=== PATIENT | male | born 1995 | race Caucasian/White ===

== ENCOUNTER 2017-05-25 17:40 | Emergency (ER) | payer OTHER ==
[2017-05-25 17:49] VITALS: BP 123/58; PULSE 69; RESP 18; TEMP 98.8
--- NOTE | 2017-05-25 18:01 | ED ---
General Adult HPI - General Chief complaint: Extremity Problem,Nontraumatic Stated complaint: RT KNEE PAIN, WELTS ON ABDOMEN Time Seen by Provider: 05/25/17 17:52 Source: patient, RN notes reviewed Mode of arrival: ambulatory Limitations: no limitations - History of Present Illness Initial comments: 22 yo male presents to the ER with cc of right knee pain. Patient states that he woke up with this in the right knee pain this morning. Patient states he has pain with range of motion of the right knee. Patient states it hurts on the medial aspect. Worse toe walking causes a shooting pain. Patient also noticed an insect bites on the redness around the area when he woke up today as well. Patient states he hasn't had a cough cold runny nose. Patient denies any fever or chills. Patient was concerned due to his symptoms so he came and evaluated. Patient denies any recent fever, chills, shortness of breath, chest pain, back pain, abdominal pain, nausea vomiting, numbness or tingling, dysuria or hematuria, constipation or diarrhea, headaches or visual changes, or any other current symptoms. - Related Data Previous Rx's Medication Instructions Recorded Cephalexin [Keflex] 500 mg PO Q6HR #40 cap 05/25/17 Allergies Allergy/AdvReac Type Severity Reaction Status Date / Time No Known Allergies Allergy Verified 05/25/17 17:49 Review of Systems ROS Statement: Those systems with pertinent positive or pertinent negative responses have been documented in the HPI. ROS Other: All systems not noted in ROS Statement are negative. Past Medical History Past Medical History: No Reported History History of Any Multi-Drug Resistant Organisms: None Reported Past Surgical History: Tonsillectomy Past Psychological History: No Psychological Hx Reported Smoking Status: Never smoker Past Alcohol Use History: Occasional Past Drug Use History: Marijuana General Exam - General Exam Comments Initial Comments: General: The patient is awake and alert, in no distress, and does not appear acutely ill. Neck: The neck is supple, there is no tenderness. Cardiovascular: There is a regular rate and rhythm. No murmur, rub or gallop is appreciated. Respiratory: Lungs are clear to auscultation, respirations are non-labored, breath sounds are equal. No wheezes, stridor, rales, or rhonchi. Musculoskeletal: Sensation intact with 2+ pulses throughout the right upper extremity. Motion of right hip right knee and right ankle. Patient does have some tenderness on the medial aspect of the right knee. Patient appears to have an insect bite with associated cellulitis from the area to the right hip. 5 out of 5 muscle strength testing throughout. No fluctuance noted. Neurological: CN II-XII intact, There are no obvious motor or sensory deficits. Coordination appears grossly intact. Speech is normal. Skin: Skin is warm and dry and no rashes or lesions are noted. Psychiatric: Normal mood and affect. Limitations: no limitations Course Vital Signs 05/25/17 17:46 Temperature 98.8 F Pulse Rate 69 Respiratory 18 Rate Blood Pressure 123/58 O2 Sat by Pulse 99 Oximetry Medical Decision Making - Medical Decision Making 22-year-old male presents for a right knee sprain along with a right groin insect bite This and was started on Keflex. We also discussed follow-up with orthopedic for any pain. We discussed return parameters all questions. He stated he understood and is in agreement with plan. This and will be discharged home. Disposition Clinical Impression: Right knee sprain, Cellulitis of right groin, Insect bite Disposition: HOME SELF-CARE Condition: Stable Instructions: Knee Sprain (ED), Cellulitis (ED) Additional Instructions: Please use medication as discussed. Please follow up with family doctor if symptoms have not improved over the next two days. Please return to the emergency room if your symptoms increase or worsen or for any other concerns. Prescriptions: Cephalexin [Keflex] 500 mg PO Q6HR #40 cap Referrals: Aung Montoya DO [Primary Care Provider] - 1-2 days Time of Disposition: 18:36
--- NOTE | 2017-05-25 18:34 | XR ---
EXAMINATION TYPE: XR knee complete RT DATE OF EXAM: 05/25/2017 CLINICAL HISTORY: pain TECHNIQUE: Three views of the right knee are obtained. COMPARISON: None. FINDINGS: There is no acute fracture/dislocation. The tri-compartment joint spaces appear within no rmal limits. The overlying soft tissue appears unremarkable. IMPRESSION: There is no acute fracture or dislocation.ICD 10 NO FRACTURE, INITIAL EVALUATION
== END 2017-05-25 18:42 | disposition home or self-care (01) ==
LOC: EC 17:40
DX: S83.91XA Sprain of unspecified site of right knee, initial encounter (principal); S30.861A Insect bite (nonvenomous) of abdominal wall, initial encounter; L03.314 Cellulitis of groin; X50.9XXA Other and unspecified overexertion or strenuous movements or postures, initial encounter; W57.XXXA Bitten or stung by nonvenomous insect and other nonvenomous arthropods, initial encounter; Y93.01 Activity, walking, marching and hiking
CPT/HCPCS: 99283

== ENCOUNTER 2017-07-28 19:29 | Emergency (ER) | payer OTHER ==
[2017-07-28 19:34] VITALS: BP 124/63; PULSE 72; RESP 18; TEMP 97.8
--- NOTE | 2017-07-28 19:41 | ED ---
General Adult HPI - General Chief complaint: Dental/Oral Stated complaint: Jaw Pain Time Seen by Provider: 07/28/17 19:34 Source: patient, RN notes reviewed Mode of arrival: ambulatory Limitations: no limitations - History of Present Illness Initial comments: Patient 22-year-old male who presents emergency room today with chief complaint of increased dental pain. He does admit that 3 days ago he had a filling that came out of tooth #19. Patient states that he has had some discomfort over the last day when he is eating. States is worried about possible infection. Says that he thinks he needs an antibiotic. He denies any drainage or discharge. Denies difficulty days. Patient points associated symptoms. Patient denies any recent fever, chills, shortness of breath, chest pain, back pain, abdominal pain , nausea or vomiting, numbness or tingling, dysuria or hematuria, constipation or diarrhea, headaches or visual changes, or any other complaints. - Related Data Previous Rx's Medication Instructions Recorded Penicillin V Potassium [Pen Vee K] 500 mg PO QID 10 Days 07/28/17 Allergies Allergy/AdvReac Type Severity Reaction Status Date / Time No Known Allergies Allergy Verified 07/28/17 19:33 Review of Systems ROS Statement: Those systems with pertinent positive or pertinent negative responses have been documented in the HPI. ROS Other: All systems not noted in ROS Statement are negative. Past Medical History Past Medical History: No Reported History History of Any Multi-Drug Resistant Organisms: None Reported Past Surgical History: Tonsillectomy Past Psychological History: No Psychological Hx Reported Smoking Status: Never smoker Past Alcohol Use History: Occasional Past Drug Use History: Marijuana General Exam - General Exam Comments Initial Comments: General: The patient is awake and alert, in no distress, and does not appear acutely ill. Eye: Pupils are equal, round and reactive to light, extra-ocular movements are intact. No nystagmus. There is normal conjunctiva bilaterally. No signs of icterus. Ears, nose, mouth and throat: There are moist mucous membranes and no oral lesions. Mild tenderness in the, tooth #19. No sign of abscess. Uvula midline. Patient swallows without difficulty. Neck: The neck is supple, there is no tenderness or JVD. Cardiovascular: There is a regular rate and rhythm. No murmur, rub or gallop is appreciated. Respiratory: Lungs are clear to auscultation, respirations are non-labored, breath sounds are equal. No wheezes, stridor, rales, or rhonchi. Musculoskeletal: Normal ROM, no tenderness. Strength 5/5. Sensation intact. Pulses equal bilaterally 2+. Neurological: A&O x 3. CN II-XII intact, There are no obvious motor or sensory deficits. Coordination appears grossly intact. Speech is normal. Skin: Skin is warm and dry and no rashes or lesions are noted. Psychiatric: Cooperative, appropriate mood & affect, normal judgment. Limitations: no limitations Course Vital Signs 07/28/17 19:30 Temperature 97.8 F Pulse Rate 72 Respiratory 18 Rate Blood Pressure 124/63 O2 Sat by Pulse 98 Oximetry Disposition Clinical Impression: Pain, dental Disposition: HOME SELF-CARE Condition: Good Instructions: Dental Abscess (ED) Additional Instructions: Please use medication as discussed. Please follow-up with dentist as discussed. Please return to emergency room if the symptoms increase or worsen or for any other concerns. Prescriptions: Penicillin V Potassium [Pen Vee K] 500 mg PO QID 10 Days Referrals: Aung Montoya DO [Primary Care Provider] - 1-2 days Time of Disposition: 19:40
== END 2017-07-28 19:46 | disposition home or self-care (01) ==
LOC: EC 19:29
DX: K08.89 Other specified disorders of teeth and supporting structures (principal); R68.84 Jaw pain
CPT/HCPCS: 99283

== ENCOUNTER 2017-09-27 15:52 | Emergency (ER) | payer BC, OTHER ==
[2017-09-27 16:01] VITALS: BP 124/59; PULSE 84; RESP 18; TEMP 97.6
--- NOTE | 2017-09-27 16:10 | ED ---
General Adult HPI - General Chief complaint: Upper Respiratory Infection Stated complaint: cough Time Seen by Provider: 09/27/17 16:02 Source: patient, RN notes reviewed Mode of arrival: ambulatory Limitations: no limitations - History of Present Illness Initial comments: Patient 22-year-old male who presents emergency room today with a chief complaint of cough congestion over the last 4 days. Patient does admit to increased sinus pressure. Admits to sore throat. Admits to mild cough. Denies any other complaints or symptoms. Patient denies any recent fever, chills , shortness of breath, chest pain, back pain, abdominal pain, nausea or vomiting , numbness or tingling, headaches or visual changes, or any other complaints. - Related Data Previous Rx's Medication Instructions Recorded Penicillin V Potassium [Pen Vee K] 500 mg PO QID 10 Days day 07/28/17 Amoxicillin/Potassium Clav 1 each PO Q12HR #20 tab 09/27/17 [Augmentin 875-125 Tablet] Fluticasone Propionate [Flonase 1 - 2 spray EA NOSTRIL DAILY 5 09/27/17 Allergy Relief] Days ml Allergies Allergy/AdvReac Type Severity Reaction Status Date / Time No Known Allergies Allergy Verified 09/27/17 16:02 Review of Systems ROS Statement: Those systems with pertinent positive or pertinent negative responses have been documented in the HPI. ROS Other: All systems not noted in ROS Statement are negative. Past Medical History Past Medical History: No Reported History History of Any Multi-Drug Resistant Organisms: None Reported Past Surgical History: Tonsillectomy Past Psychological History: No Psychological Hx Reported Smoking Status: Never smoker Past Alcohol Use History: Occasional Past Drug Use History: Marijuana General Exam - General Exam Comments Initial Comments: General: The patient is awake and alert, in no distress, and does not appear acutely ill. Eye: Pupils are equal, round and reactive to light, extra-ocular movements are intact. No nystagmus. There is normal conjunctiva bilaterally. No signs of icterus. Ears, nose, mouth and throat: There are moist mucous membranes and no oral lesions. patient does have tenderness over the maxillary sinuses greater on the right the left. Neck: The neck is supple, there is no tenderness or JVD. Cardiovascular: There is a regular rate and rhythm. No murmur, rub or gallop is appreciated. Respiratory: Lungs are clear to auscultation, respirations are non-labored, breath sounds are equal. No wheezes, stridor, rales, or rhonchi. Musculoskeletal: Normal ROM, no tenderness. Strength 5/5. Sensation intact. Pulses equal bilaterally 2+. Neurological: A&O x 3. CN II-XII intact, There are no obvious motor or sensory deficits. Coordination appears grossly intact. Speech is normal. Skin: Skin is warm and dry and no rashes or lesions are noted. Psychiatric: Cooperative, appropriate mood & affect, normal judgment. Limitations: no limitations Course Vital Signs 09/27/17 15:58 Temperature 97.6 F Pulse Rate 84 Respiratory 18 Rate Blood Pressure 124/59 O2 Sat by Pulse 98 Oximetry Medical Decision Making - Medical Decision Making she will be started on Flonase advise use antibiotic if there is no improvement over the next 2 days. Advised to return if any symptoms increase or worsen. Disposition Clinical Impression: Acute sinusitis Disposition: HOME SELF-CARE Condition: Good Instructions: Sinusitis (ED) Additional Instructions: Please use medication as discussed. Please follow-up with family doctor in the next 2 days of symptoms have not improved. Please return to emergency room if the symptoms increase or worsen or for any other concerns. Prescriptions: Amoxicillin/Potassium Clav [Augmentin 875-125 Tablet] 1 each PO Q12HR #20 tab Fluticasone Propionate [Flonase Allergy Relief] 1 - 2 spray EA NOSTRIL DAILY 5 Days ml Referrals: Aung Montoya DO [Primary Care Provider] - 1-2 days Time of Disposition: 16:07
== END 2017-09-27 16:19 | disposition home or self-care (01) ==
LOC: EC 15:52
DX: J01.90 Acute sinusitis, unspecified (principal); J02.9 Acute pharyngitis, unspecified
CPT/HCPCS: 99283

== ENCOUNTER 2019-03-25 11:17 | Emergency (ER) | payer BC ==
[2019-03-25 11:28] VITALS: TEMP 98.7
[2019-03-25] MEDS ORDERED: IPRATROPIUM-ALBUTEROL 3 ML NEB INHALATION STA (11:37)
--- NOTE | 2019-03-25 11:51 | XR ---
EXAMINATION TYPE: XR chest 2V DATE OF EXAM: 03/25/2019 COMPARISON: Prior chest x-ray 05/06/2013 HISTORY: Cough and pain TECHNIQUE: Frontal and lateral views of the chest are obtained. FINDINGS: There are overlying cardiac leads. There is no focal air space opacity, pleural effusion, o r pneumothorax seen. The cardiac silhouette size is within normal limits. The osseous structures a re intact. IMPRESSION: No acute cardiopulmonary process.
--- NOTE | 2019-03-25 12:18 | ED ---
URI HPI - General Chief Complaint: Upper Respiratory Infection Stated Complaint: roger, chest tightness Time Seen by Provider: 03/25/19 11:31 Source: patient, RN notes reviewed Mode of arrival: ambulatory Limitations: no limitations - History of Present Illness Initial Comments: This a 24-year-old male presents emergency Department chief complaint of cough congestion shortness of breath. Patient states symptoms started last few days woke up some increased shortness of breath and pain with deep inspiration. Patient states that he does smoke marijuana regular basis. Patient states she's had sinus congestion and a slightly productive cough. Patient denies any known fevers or chills denies any sick contacts. Denies ear pain, sore throat. Denies nausea and diarrhea constipation. - Related Data Previous Rx's Medication Instructions Recorded Penicillin V Potassium [Pen Vee K] 500 mg PO QID 10 Days day 07/28/17 Amoxicillin/Potassium Clav 1 each PO Q12HR #20 tab 09/27/17 [Augmentin 875-125 Tablet] Fluticasone Propionate [Flonase 1 - 2 spray EA NOSTRIL DAILY 5 09/27/17 Allergy Relief] Days ml Albuterol Sulfate [Proair Hfa] 1 - 2 puff INHALATION Q4HR PRN #1 03/25/19 inhaler Azithromycin [Zithromax Z-pack] 0 mg PO DIRECTED #1 pack 03/25/19 predniSONE 50 mg PO DAILY #5 tab 03/25/19 Allergies Allergy/AdvReac Type Severity Reaction Status Date / Time No Known Allergies Allergy Verified 09/27/17 16:02 Review of Systems ROS Statement: Those systems with pertinent positive or pertinent negative responses have been documented in the HPI. ROS Other: All systems not noted in ROS Statement are negative. Past Medical History Past Medical History: No Reported History History of Any Multi-Drug Resistant Organisms: None Reported Past Surgical History: Tonsillectomy Past Psychological History: No Psychological Hx Reported Smoking Status: Never smoker Past Alcohol Use History: Occasional Past Drug Use History: Marijuana General Exam Limitations: no limitations General appearance: alert, in no apparent distress Head exam: Present: atraumatic, normocephalic, normal inspection Eye exam: Present: normal appearance, PERRL, EOMI. Absent: scleral icterus, conjunctival injection, periorbital swelling ENT exam: Present: normal exam, normal oropharynx, mucous membranes moist, TM's normal bilaterally Neck exam: Present: normal inspection. Absent: tenderness, meningismus, lymphadenopathy Respiratory exam: Present: wheezes. Absent: normal lung sounds bilaterally, respiratory distress, rales, rhonchi, stridor Cardiovascular Exam: Present: regular rate, normal rhythm, normal heart sounds. Absent: systolic murmur, diastolic murmur, rubs, gallop, clicks Course Vital Signs 03/25/19 03/25/19 03/25/19 11:26 11:54 12:03 Temperature 98.7 F Pulse Rate 86 81 85 Respiratory 18 Rate Blood Pressure 108/72 O2 Sat by Pulse 97 Oximetry Medical Decision Making - Medical Decision Making 24-year-old male presented for cough congestion shortness of breath. EKG, chest x-ray were obtained patient was also given a DuoNeb treatment. Patient is improved after this. Patient has acute bronchitis with bronchospasms. Patient we discharged with azithromycin and prednisone along with the pro-air inhaler. 03/25/19 12:18 EKG performed at 11:35 normal sinus rhythm rate of 82 AK 158 QRS 88 QT/QTC 338/394 Disposition Clinical Impression: Acute bronchitis with bronchospasm, Costochondritis, acute Disposition: HOME SELF-CARE Condition: Stable Instructions (If sedation given, give patient instructions): Acute Bronchitis (ED) Additional Instructions: Please return to the Emergency Department if symptoms worsen or any other concerns. Prescriptions: predniSONE 50 mg PO DAILY #5 tab Albuterol Sulfate [Proair Hfa] 1 - 2 puff INHALATION Q4HR PRN #1 inhaler PRN Reason: difficulty in breathing Azithromycin [Zithromax Z-pack] 0 mg PO DIRECTED #1 pack Is patient prescribed a controlled substance at d/c from ED?: No Referrals: Aung Montoya DO [Primary Care Provider] - 1-2 days Time of Disposition: 12:18
[2019-03-25 13:07] VITALS: BP 132/67; PULSE 96; RESP 16
== END 2019-03-25 13:00 | disposition home or self-care (01) ==
LOC: EC 11:17
DX: M94.0 Chondrocostal junction syndrome [Tietze] (principal); J20.9 Acute bronchitis, unspecified
CPT/HCPCS: 71046; 93005; 94640; 99285

== ENCOUNTER 2020-02-11 14:10 | Emergency (ER) | payer BC, OTHER ==
--- NOTE | 2020-02-11 15:17 | ED ---
General Adult HPI - General Chief complaint: Chest Pain Stated complaint: migraine/chest pain Time Seen by Provider: 02/11/20 14:26 Source: patient Mode of arrival: ambulatory Limitations: no limitations - History of Present Illness Initial comments: 25-year-old male patient presents to the emergency department today for evaluation of cough and chest discomfort. Patient states that when he woke this morning he had a migraine headache, went to work. States that the headache did seem to resolve however he started to have a cough and chest tightness. Denies any increased pain with inspiration. Denies fever or chills. Denies any nasal congestion or drainage. He is not having any sputum production with this. States that he does smoke marijuana once daily but denies any use of cigarettes. Denies history of asthma. Denies family history of cardiac disease. Patient denies any recent rash, abdominal pain, nausea, vomiting, diarrhea, constipa tion, back pain, numbness, tingling, dizziness, weakness, hematuria, dysuria, urinary urgency, urinary frequency, headache, visual changes, or any other complaints. - Related Data Home Medications Medication Instructions Recorded Confirmed No Known Home Medications 02/11/20 02/11/20 Allergies Allergy/AdvReac Type Severity Reaction Status Date / Time No Known Allergies Allergy Verified 02/11/20 15:45 Review of Systems ROS Statement: Those systems with pertinent positive or pertinent negative responses have been documented in the HPI. ROS Other: All systems not noted in ROS Statement are negative. Past Medical History Past Medical History: No Reported History History of Any Multi-Drug Resistant Organisms: None Reported Past Surgical History: Tonsillectomy Past Psychological History: No Psychological Hx Reported Smoking Status: Current every day smoker Past Alcohol Use History: Occasional Past Drug Use History: Marijuana General Exam Limitations: no limitations General appearance: alert, in no apparent distress, other (This is a well- developed, well-nourished adult male patient in no acute distress. Vital signs upon presentation are temperature 98.2F, pulse 62, respirations 18, blood pressure 126/72, pulse ox 97% on room air.) ENT exam: Present: normal exam, normal oropharynx, mucous membranes moist Respiratory exam: Present: normal lung sounds bilaterally. Absent: respiratory distress, wheezes, rales, rhonchi, stridor Cardiovascular Exam: Present: regular rate, normal rhythm, normal heart sounds. Absent: systolic murmur, diastolic murmur, rubs, gallop, clicks GI/Abdominal exam: Present: soft, normal bowel sounds. Absent: distended, tenderness, guarding, rebound, rigid Neurological exam: Present: alert, oriented X3, CN II-XII intact Psychiatric exam: Present: normal affect, normal mood Skin exam: Present: warm, dry, intact, normal color. 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 Ventricular rate is 59, VT interval 176, QRS duration 88, QT 402, QTc 397. Medical Decision Making - Medical Decision Making 25-year-old male patient presented to the emergency department today for evaluation of cough and chest discomfort. Physical examination reveals clear equal lung sounds. He is breathing without difficulty. No accessory muscle use, no tachypnea. Vital signs showed no major abnormalities. He is afebrile. EKG shows sinus bradycardia. Chest x-ray is negative. Patient will be discharged to follow-up with his primary care physician for recheck in 1-2 days. Return parameters were discussed in detail. He verbalizes understanding and agrees with this plan. - Radiology Data Radiology results: report reviewed, image reviewed Two-view x-ray of the chest is obtained. Report was reviewed in its entirety. Impression by Dr. Escalante shows no acute pulmonary process. Disposition Clinical Impression: Cough, Chest tightness Disposition: HOME SELF-CARE Condition: Good Instructions (If sedation given, give patient instructions): Chest Pain (ED), Acute Cough (ED) Additional Instructions: If you develop fever or worsening cough there is a possiblity this could be COVID-19, in that case you must self-quarantine for 14 days. Follow-up with your primary care physician for recheck in 1-2 days. Return to the emergency department immediately for any new, worsening, or concerning symptoms. Is patient prescribed a controlled substance at d/c from ED?: No Referrals: None,Stated [Primary Care Provider] - 1-2 days Time of Disposition: 15:56
--- NOTE | 2020-02-11 15:49 | XR ---
EXAMINATION TYPE: XR chest 2V DATE OF EXAM: 02/11/2020 COMPARISON: 03/25/2019 INDICATION: Chest pain, cough TECHNIQUE: Frontal and lateral views of the chest are obtained. FINDINGS: The heart size is normal. The pulmonary vasculature is normal. The lungs are clear. IMPRESSION: 1. No acute pulmonary process.
[2020-02-11 16:14] VITALS: BP 122/78; PULSE 66; RESP 18; TEMP 98.1
== END 2020-02-11 16:13 | disposition home or self-care (01) ==
LOC: EC 14:10
DX: R07.89 Other chest pain (principal); R05 Cough; R00.1 Bradycardia, unspecified; F17.200 Nicotine dependence, unspecified, uncomplicated
CPT/HCPCS: 71046; 93005; 99285

== ENCOUNTER 2020-03-01 12:57 | Emergency (ER) | payer OTHER ==
[2020-03-01 13:07] VITALS: RESP 18
--- NOTE | 2020-03-01 13:29 | ED ---
General Adult HPI - General Chief complaint: Abdominal Pain Stated complaint: Abscess Time Seen by Provider: 03/01/20 13:15 Source: patient, RN notes reviewed Mode of arrival: ambulatory Limitations: no limitations - History of Present Illness Initial comments: 25-year-old male without any significant past medical history presents to the emergency department for a chief complaint of Reyn[place] the left groin. Patient states that this started this morning. Denies any abdominal pain. States bowel movements are normal. Patient denies any dysuria. Denies testicular pain. Denies fevers. Denies any constitutional symptoms. Patient has no other complaints at this time including shortness of breath, chest pain, abdominal pain, nausea or vomiting, headache, or visual changes. - Related Data Home Medications Medication Instructions Recorded Confirmed No Known Home Medications 02/11/20 02/11/20 Allergies Allergy/AdvReac Type Severity Reaction Status Date / Time No Known Allergies Allergy Verified 03/01/20 13:05 Review of Systems ROS Statement: Those systems with pertinent positive or pertinent negative responses have been documented in the HPI. ROS Other: All systems not noted in ROS Statement are negative. Past Medical History Past Medical History: No Reported History History of Any Multi-Drug Resistant Organisms: None Reported Past Surgical History: Tonsillectomy Past Psychological History: No Psychological Hx Reported Smoking Status: Current every day smoker Past Alcohol Use History: Occasional Past Drug Use History: Marijuana General Exam Limitations: no limitations General appearance: alert, in no apparent distress Head exam: Present: atraumatic, normocephalic, normal inspection Eye exam: Present: normal appearance, PERRL, EOMI. Absent: scleral icterus, conjunctival injection, periorbital swelling ENT exam: Present: normal exam, mucous membranes moist Neck exam: Present: normal inspection. Absent: tenderness, meningismus, lymphadenopathy Respiratory exam: Present: normal lung sounds bilaterally. Absent: respiratory distress, wheezes, rales, rhonchi, stridor Cardiovascular Exam: Present: regular rate, normal rhythm, normal heart sounds. Absent: systolic murmur, diastolic murmur, rubs, gallop, clicks GI/Abdominal exam: Present: soft, normal bowel sounds. Absent: distended, tenderness, guarding, rebound, rigid exam: Present: other (Patient has a 3 cm x 1 cm indurated mobile mass of the left suprapubic groin area. Generally nontender. There is no erythema present overlying this. There is no groin infection noted. There is no infection of the left leg. Jess ALVAREZ present for examinations) Course Vital Signs 03/01/20 13:05 Temperature 98.2 F Pulse Rate 67 Respiratory 18 Rate Blood Pressure 113/63 O2 Sat by Pulse 98 Oximetry Medical Decision Making - Medical Decision Making HPI and physical exam as documented. Again no constitutional symptoms. No rash. Ultrasound of the left groin area shows one normal sized lymph node measuring 8 mm and one slightly enlarged lymph node measuring 1.4 cm. urinalysis is unremarkable. Gonorrhea chlamydia pending. Dr. Stevens recommend CBC CMP. White count is normal at 6.0. CMP is unremarkable. At this time patient will follow up with primary care to ensure resolving lymphadenopathy. He will return here with worsening symptoms. - Lab Data Result diagrams: 03/01/20 14:42 03/01/20 14:42 Lab Results 03/01/20 03/01/20 03/01/20 Range/Units 13:20 14:42 14:42 WBC 6.0 (3.8-10.6) k/uL RBC 5.11 (4.30-5.90) m/uL Hgb 15.6 (13.0-17.5) gm/dL Hct 46.4 (39.0-53.0) % MCV 90.7 (80.0-100.0) fL MCH 30.5 (25.0-35.0) pg MCHC 33.7 (31.0-37.0) g/dL RDW 12.5 (11.5-15.5) % Plt Count 192 (150-450) k/uL Neutrophils % 58 % Lymphocytes % 27 % Monocytes % 8 % Eosinophils % 3 % Basophils % 1 % Neutrophils # 3.5 (1.3-7.7) k/uL Lymphocytes # 1.6 (1.0-4.8) k/uL Monocytes # 0.5 (0-1.0) k/uL Eosinophils # 0.2 (0-0.7) k/uL Basophils # 0.1 (0-0.2) k/uL Sodium 140 (137-145) mmol/L Potassium 4.3 (3.5-5.1) mmol/L Chloride 105 (98-107) mmol/L Carbon Dioxide 28 (22-30) mmol/L Anion Gap 7 mmol/L BUN 16 (9-20) mg/dL Creatinine 0.82 (0.66-1.25) mg/dL Est GFR (CKD-EPI)AfAm >90 (>60 ml/min/1.73 sqM) Est GFR (CKD-EPI)NonAf >90 (>60 ml/min/1.73 sqM) Glucose 91 (74-99) mg/dL Calcium 9.3 (8.4-10.2) mg/dL Urine Color Yellow Urine Appearance Clear (Clear) Urine pH 5.5 (5.0-8.0) Ur Specific [place] 1.027 (1.001-1.035) Urine Protein Negative (Negative) Urine Glucose (UA) Negative (Negative) Urine Ketones Negative (Negative) Urine Blood Negative (Negative) Urine Nitrite Negative (Negative) Urine Bilirubin Negative (Negative) Urine Urobilinogen <2.0 (<2.0) mg/dL Ur Leukocyte Esterase Negative (Negative) Disposition Clinical Impression: Lymphadenopathy Disposition: HOME SELF-CARE Condition: Good Instructions (If sedation given, give patient instructions): Lymphadenopathy (ED) Additional Instructions: Please follow up with primary care. It is important that you follow-up to make sure that this lymph node is resolving. If it is not going away within the next few weeks you will need additional testing through a primary care provider to rule out any other causes. If you're having worsening symptoms return to the emergency room. Is patient prescribed a controlled substance at d/c from ED?: No Referrals: Marisela Josue MD [REFERRING] - 1-2 days Time of Disposition: 14:25
[2020-03-01 13:50] LABS: Appearance,Urine Clear (Clear); Bilirubin,Urine Negative (Negative); Blood,Urine Negative (Negative); Color,Urine Yellow; Glucose,Urine (UA) Negative (Negative); Ketones,Urine Negative (Negative); Leukocyte Esterase,Urine Negative (Negative); Nitrite,Urine Negative (Negative); PH, Urine 5.5 (5.0-8.0); Protein,Urine Negative (Negative); Specific Gravity,Urine 1.027 (1.001-1.035); Urobilinogen,Urine <2.0 mg/dL (<2.0)
--- NOTE | 2020-03-01 14:17 | US ---
EXAMINATION TYPE: US groin LT DATE OF EXAM: 03/01/2020 COMPARISON: NONE CLINICAL HISTORY: lump. Patient states just noticing a lump this morning in left groin. Area of lump scanned. Two lymph node appearing lesions seen anterior to EIV. 1- 3.2 x 1.7 x 1.4 cm 2- 0.8 x 0.8 x 0.8 cm IMPRESSION: 1. 1 NORMAL-SIZED LYMPH NODE MEASURING 8 MM. 2. 1 SLIGHTLY ENLARGED LYMPH NODE MEASURING 1.4 CM. NEITHER OF THESE LOOKS REPLACED.
[2020-03-01 14:53] LABS: Basophils # (A) 0.1 k/uL (0-0.2); Basophils % (A) 1 %; Eosinophils # (A) 0.2 k/uL (0-0.7); Eosinophils % (A) 3 %; HCT 46.4 % (39.0-53.0); HGB 15.6 gm/dL (13.0-17.5); Lymphocytes # (A) 1.6 k/uL (1.0-4.8); Lymphocytes % (A) 27 %; MCH 30.5 pg (25.0-35.0); MCHC 33.7 g/dL (31.0-37.0); MCV 90.7 fL (80.0-100.0); Mean Platelet Volume 7.9; Monocytes # (A) 0.5 k/uL (0-1.0); Monocytes % (A) 8 %; Neutrophils # (A) 3.5 k/uL (1.3-7.7); Neutrophils % (A) 58 %; Platelet Count 192 k/uL (150-450); RBC 5.11 m/uL (4.30-5.90); RDW 12.5 % (11.5-15.5)
[2020-03-01 15:01] LABS: African American GFR (CKD) >90 (>60 ml/min/1.73 sqM); Anion Gap 7 mmol/L; Blood Urea Nitrogen 16 mg/dL (9-20); Calcium 9.3 mg/dL (8.4-10.2); Carbon Dioxide 28 mmol/L (22-30); Chloride 105 mmol/L (98-107); Glucose 91 mg/dL (74-99); Non-African American GFR(CKD) >90 (>60 ml/min/1.73 sqM); Potassium 4.3 mmol/L (3.5-5.1); Sodium 140 mmol/L (137-145)
[2020-03-01 15:33] VITALS: BP 115/68; PULSE 70; TEMP 98
[2020-03-03 14:34] LABS: C. trachomatis,PCR Negative (Neg,Equiv); Chlamydia trachomatis Source Urine; N. gonorrhoeae,PCR Negative (Neg,Equiv); Neisseria Source Urine
== END 2020-03-01 15:20 | disposition home or self-care (01) ==
LOC: EC 12:57
DX: R59.1 Generalized enlarged lymph nodes (principal); F17.200 Nicotine dependence, unspecified, uncomplicated
CPT/HCPCS: 36415; 80048; 81003; 85025; 87491; 87591; 99284

== ENCOUNTER 2020-04-15 10:08 | Emergency (ER) | payer OTHER ==
[2020-04-15 10:24] VITALS: BP 112/68; PULSE 66; RESP 18; TEMP 98
[2020-04-15] MEDS ORDERED: ACET/COD 300 MG/30 MG STARTER PACK 6 TAB BTL PO STA (10:54)
[2020-04-15] MEDS ORDERED: AMOXIC-POT CLAV 875MG STARTER PACK 2 TAB BTL PO STA (10:54)
--- NOTE | 2020-04-15 10:56 | ED ---
ENT HPI - General Chief complaint: Dental/Oral Stated complaint: dental pain Time Seen by Provider: 04/15/20 10:30 Source: patient, RN notes reviewed, old records reviewed Mode of arrival: ambulatory Limitations: no limitations - History of Present Illness Initial comments: 25-year-old male presents for shortness of right lower dental pain. Patient rep orts that he has had a history of poor dentition. Patient states that he noticed to have pain and swelling around the right lower tooth within the past 24 hours. He does not have a dentist at this time. Patient states that he has concern for developing abscess. Denies any fever. Denies trismus. Denies any foul taste in his vomit this time or actively draining. - Related Data Previous Rx's Medication Instructions Recorded Amoxic-Pot Clav 875-125Mg 1 tab PO Q12HR #20 tablet 04/15/20 [Augmentin 875-125] Allergies Allergy/AdvReac Type Severity Reaction Status Date / Time No Known Allergies Allergy Verified 04/15/20 11:03 Review of Systems ROS Statement: Those systems with pertinent positive or pertinent negative responses have been documented in the HPI. ROS Other: All systems not noted in ROS Statement are negative. Past Medical History Past Medical History: No Reported History History of Any Multi-Drug Resistant Organisms: None Reported Past Surgical History: Tonsillectomy Past Psychological History: No Psychological Hx Reported Smoking Status: Current every day smoker Past Alcohol Use History: Occasional Past Drug Use History: Marijuana General Exam - General Exam Comments Initial Comments: Alert and oriented 25-year-old male. No distress. Limitations: no limitations General appearance: alert, in no apparent distress Head exam: Present: atraumatic, normocephalic, normal inspection Eye exam: Present: normal appearance, PERRL, EOMI. Absent: scleral icterus, conjunctival injection, periorbital swelling ENT exam: Present: normal exam, mucous membranes moist, other (Patient has broken tooth #31 with surrounding erythema around the gumline. Patient has no drainable abscess at this time.) Neck exam: Present: normal inspection. Absent: tenderness, meningismus, lymphadenopathy Respiratory exam: Present: normal lung sounds bilaterally. Absent: respiratory distress, wheezes, rales, rhonchi, stridor Cardiovascular Exam: Present: regular rate, normal rhythm, normal heart sounds. Absent: systolic murmur, diastolic murmur, rubs, gallop, clicks GI/Abdominal exam: Present: soft, normal bowel sounds. Absent: distended, tenderness, guarding, rebound, rigid Extremities exam: Present: normal inspection, full ROM, normal capillary refill. Absent: tenderness, pedal edema, joint swelling, calf tenderness Back exam: Present: normal inspection Neurological exam: Present: alert, oriented X3, CN II-XII intact Psychiatric exam: Present: normal affect, normal mood Skin exam: Present: warm, dry, intact, normal color. Absent: rash Course Vital Signs 04/15/20 10:22 Temperature 98.0 F Pulse Rate 66 Respiratory 18 Rate Blood Pressure 112/68 O2 Sat by Pulse 99 Oximetry Medical Decision Making - Medical Decision Making 25-year-old male presents with dental pain over the right lower jaw. He has evidence of small possible developing abscess around tooth #31. Is no trismus. No significant swelling to the cheek or redness at this time. I discussed with the Patient a short course of antibiotic and following up with a dentist. I discussed following up with primary care physician. Discharged with a started pack for pain medication, advised salt water and Listerine rinses and completing the entire antibiotic prescription. - Radiology Data Radiology results: report reviewed Disposition Clinical Impression: Pain, dental Disposition: HOME SELF-CARE Condition: Good Instructions (If sedation given, give patient instructions): Toothache (ED) Additional Instructions: [facility] [id number] [place] [address] [phone] (existing clients only) For new clients: [phone] 1st consult: $50 (includes Xrays) Usually 30% less then private dentist for visits after. [employer] Have to pay $50 for Xrays anmd rest is covered. [phone] Prescriptions: Amoxic-Pot Clav 875-125Mg [Augmentin 875-125] 1 tab PO Q12HR #20 tablet Is patient prescribed a controlled substance at d/c from ED?: No Referrals: None,Stated [Primary Care Provider] - 1-2 days Time of Disposition: 10:55
== END 2020-04-15 11:13 | disposition home or self-care (01) ==
LOC: EC 10:08
DX: K03.81 Cracked tooth (principal); F17.200 Nicotine dependence, unspecified, uncomplicated
CPT/HCPCS: 99283

== ENCOUNTER 2020-05-07 21:34 | Emergency (ER) | payer OTHER ==
[2020-05-07] MEDS ORDERED: ceFAZolin 1,000 MG VIAL (IM USE) IM STA (22:15)
[2020-05-07] MEDS ORDERED: DIPH,PERTUS(ACELL)TETVAC-LF 0.5 ML VIAL IM ONE (22:15)
--- NOTE | 2020-05-07 23:04 | XR ---
EXAMINATION TYPE: XR finger LT DATE OF EXAM: 05/07/2020 COMPARISON: NONE HISTORY: Puncture with a nail gun. Pain TECHNIQUE: 3 views FINDINGS: There is small rounded defect in the head of the middle phalanx of the left middle finger c onsistent with a puncture wound with a nail gun. There is some elevated cortex on the posterior aspec t on the lateral view. There is no dislocation. IMPRESSION: There is evidence for puncture wound and fracture without displacement of the posterior c ortex of the distal end of the middle phalanx middle finger left hand. No foreign body seen.
--- NOTE | 2020-05-07 23:25 | ED ---
Upper Extremity HPI - General Chief Complaint: Extremity Injury, Upper Stated Complaint: finger injury Time Seen by Provider: 05/07/20 21:42 Source: patient Mode of arrival: ambulatory Limitations: no limitations - History of Present Illness Initial Comments: 25-year-old male presenting for left middle finger injury. Patient states that he shot a nail gun through piece of wood he states the tip of the nail went into his left middle finger penetrating via radial aspect of digit. Patient states he is unsure how deep the nail was but was able to remove it relatively easy. Denies limitations in ROM, admits to pain in digits. Washed out area. He states that over the past day the area has swelled, noticed very slight redness, admits to pain with ROM. He denies swelling of the entire finger. He denies other area of injury, numbness or weakness of digits. Denies fever, drainage. Patient has no additional complaints .Denies PMH. Apperas well nontoxic on arrival, no acute distress. - Related Data Previous Rx's Medication Instructions Recorded Cephalexin [Keflex] 500 mg PO Q6H 7 Days #28 cap 05/07/20 Allergies Allergy/AdvReac Type Severity Reaction Status Date / Time No Known Allergies Allergy Verified 04/15/20 11:03 Review of Systems ROS Statement: Those systems with pertinent positive or pertinent negative responses have been documented in the HPI. ROS Other: All systems not noted in ROS Statement are negative. Past Medical History Past Medical History: No Reported History History of Any Multi-Drug Resistant Organisms: None Reported Past Surgical History: Tonsillectomy Past Psychological History: No Psychological Hx Reported Smoking Status: Former smoker Past Alcohol Use History: Occasional Past Drug Use History: Marijuana General Exam - General Exam Comments Initial Comments: General: The patient is awake and alert, in no distress, and does not appear acutely ill. Eye: +3 mm pupils are equal, round and reactive to light, extra-ocular movements are intact. No nystagmus. There is normal conjunctiva bilaterally. No signs of icterus. Gastrointestinal: Soft, non-distended, non-tender abdomen without masses or organomegaly noted. There is no rebound or guarding present. Musculoskeletal: Normal ROM at the mcp, dip and pip joitns of all 5 digits of the left hand. pain with ROM at the middle digit of left hand. small puncture on radial side of digit mid finger., NO drainage, no large opening appears sealed off. Some mild redness. No fusiform swelling of the entire digit. .swelling of tuft. tissues of digit compression. no pain along flexor aspect of the proximal digit/hand. Strength 5/5. Sensation intact. Radial pulses equal bilaterally 2+. capillary refill < 3 seconds. Neurological: A&O x 3. CN II-XII intactgrossly, There are no obvious motor or sensory deficits. Coordination appears grossly intact. Speech is normal. Skin: Skin is warm and dry and no rashes.. Psychiatric: Cooperative, appropriate mood & affect, normal judgment. Limitations: no limitations Course Vital Signs 05/07/20 21:36 Temperature 98.1 F Pulse Rate 79 Respiratory 16 Rate Blood Pressure 121/70 O2 Sat by Pulse 98 Oximetry Medical Decision Making - Medical Decision Making Wound cleansed. difficult to irrigate secondary to sealed puncture. Patient has middle phalanx fracture. Open given mechanism injury. Patient was given Cefzil and IM. Tetanus updated. Patient has no obvious signs of tendon injury at this time however cannot rule out partial rupture. Patient neurovascularly intact and at this time after discussing case with on-call orthopedic surgery DAVE Marie we feel patient is stale for discharge with oral antibiotics and close monitoring for infection. I discussed the risk of osteomyelitis and flexor tenosynovitis with patient and the importance of strict return parameters for any increased swelling pain redness or limitations in range of motion patient verbalized understanding is aware that he could be debilitated if he does not timely follow-up or if he ignored return parameters. Patient is agreeable and was discharged appearing well after discussing case with Dr. Redmond Disposition Clinical Impression: Fracture of middle phalanx of left middle finger, Puncture wound Disposition: HOME SELF-CARE Condition: Good Instructions (If sedation given, give patient instructions): Finger Fracture (ED), Puncture Wound (DC) Additional Instructions: Please use medication as discussed. Please follow-up with orthopedic surgery in 2 days, they will monitor hand closely. If swellign increases/redness/limitations in range of motion immediate, fever return to ER Please return to emergency room if the symptoms increase or worsen or for any other concerns. Prescriptions: Cephalexin [Keflex] 500 mg PO Q6H 7 Days #28 cap Is patient prescribed a controlled substance at d/c from ED?: No Referrals: None,Stated [Primary Care Provider] - 1-2 days Zhou Bradley DO [Doctor of Osteopathic Medicine] - 1-2 days Time of Disposition: 23:24
[2020-05-09 09:43] VITALS: BP 121/70; PULSE 79; RESP 16; TEMP 98.1
== END 2020-05-07 23:28 | disposition home or self-care (01) ==
LOC: EC 21:34
DX: S62.623A Displaced fracture of middle phalanx of left middle finger, initial encounter for closed fracture (principal); Z87.891 Personal history of nicotine dependence; W34.09XA Accidental discharge from other specified firearms, initial encounter
CPT/HCPCS: 90471; 90715; 96372; 99283

== ENCOUNTER 2020-07-10 19:48 | Emergency (ER) | payer OTHER ==
[2020-07-10 19:55] VITALS: PULSE 88; RESP 18; TEMP 98.5
--- NOTE | 2020-07-10 21:00 | ED ---
Male Urogenital HPI - General Chief complaint: Urogenital Stated complaint: sore throat, male Time Seen by Provider: 07/10/20 20:09 Source: patient, RN notes reviewed, old records reviewed Mode of arrival: ambulatory Limitations: no limitations - History of Present Illness Initial comments: Patient is a 25-year-old male presents emergency department today for evaluation for concern for sore throat for the past 2 days. He also complains of a lesion over his penis. He states he's had for the past week. He was initially related to friction burn from wearing tight compression fractures. At this time Patient denies any dysuria. Denies any penile discharge. He states he had a lesion like this before which he states was swabbed for herpes and was negative. He states that he has no other significant symptoms. - Related Data Previous Rx's Medication Instructions Recorded Cephalexin [Keflex] 500 mg PO Q6H 7 Days #28 cap 05/07/20 Lidocaine [Lidocaine 3% Topical 1 applic TOPICAL TID #30 gram 07/10/20 Cream] Mupirocin 2% Oint [Bactroban 2% 1 applic TOPICAL TID #60 gm 07/10/20 Oint] valACYclovir HCL [Valtrex] 1,000 mg PO Q8HR #21 tab 07/10/20 Allergies Allergy/AdvReac Type Severity Reaction Status Date / Time No Known Allergies Allergy Verified 07/10/20 19:55 Review of Systems ROS Statement: Those systems with pertinent positive or pertinent negative responses have been documented in the HPI. ROS Other: All systems not noted in ROS Statement are negative. Past Medical History Past Medical History: No Reported History History of Any Multi-Drug Resistant Organisms: None Reported Past Surgical History: Tonsillectomy Past Psychological History: No Psychological Hx Reported Smoking Status: Never smoker Past Alcohol Use History: Occasional Past Drug Use History: Marijuana General Exam - General Exam Comments Initial Comments: 25-year-old male. Alert and oriented 3.No distress. Limitations: no limitations General appearance: alert, in no apparent distress Head exam: Present: atraumatic, normocephalic, normal inspection Eye exam: Present: normal appearance, PERRL, EOMI. Absent: scleral icterus, conjunctival injection, periorbital swelling ENT exam: Present: normal exam, mucous membranes moist. Absent: other (Minimal erythema posterior oropharynx.) Neck exam: Present: normal inspection. Absent: tenderness, meningismus, lymphadenopathy Respiratory exam: Present: normal lung sounds bilaterally. Absent: respiratory distress, wheezes, rales, rhonchi, stridor Cardiovascular Exam: Present: regular rate, normal rhythm, normal heart sounds. Absent: systolic murmur, diastolic murmur, rubs, gallop, clicks GI/Abdominal exam: Present: soft, normal bowel sounds. Absent: distended, tenderness, guarding, rebound, rigid Extremities exam: Present: normal inspection, full ROM, normal capillary refill. Absent: tenderness, pedal edema, joint swelling, calf tenderness Back exam: Present: normal inspection Neurological exam: Present: alert, oriented X3, CN II-XII intact Psychiatric exam: Present: normal affect, normal mood Skin exam: Present: warm, dry, intact, normal color. Absent: rash Course Vital Signs 07/10/20 19:52 Temperature 98.5 F Pulse Rate 88 Respiratory 18 Rate Blood Pressure 144/84 O2 Sat by Pulse 99 Oximetry Medical Decision Making - Medical Decision Making 25-year-old male presents return today with sore throat. I'll irritation. Appears to have either friction burn possible herpes infection. Viral swab was completed. We'll start the Patient on Valtrex until this is completed. Also will put mupirocin ointment and he requests lidocaine ointment for pain. His posterior paroxysmal minimally erythematous and rapid strep test is negative. Discussed likely viral to use ALLERGY medication and Motrin Tylenol for pain. Patient is agreeable to treatment plan. - Lab Data Lab Results 07/10/20 Range/Units 20:41 Group A Strep Rapid Negative (Negative) - Radiology Data Radiology results: report reviewed Disposition Clinical Impression: Penile lesion, Pharyngitis Disposition: HOME SELF-CARE Condition: Good Instructions (If sedation given, give patient instructions): Pharyngitis (ED) Additional Instructions: Continue ALLERGY medication for sore throat and Motrin Tylenol for pain. Patient can take the antiviral medication for possible sepsis suspected herpes infection. The viral swab will resolve within next few days. Return to the ED if any alarming signs or symptoms occur. Prescriptions: Mupirocin 2% Oint [Bactroban 2% Oint] 1 applic TOPICAL TID #60 gm Lidocaine [Lidocaine 3% Topical Cream] 1 applic TOPICAL TID #30 gram valACYclovir HCL [Valtrex] 1,000 mg PO Q8HR #21 tab Is patient prescribed a controlled substance at d/c from ED?: No Referrals: None,Stated [Primary Care Provider] - 1-2 days Time of Disposition: 21:03
[2020-07-10 21:26] VITALS: BP 138/80
== END 2020-07-10 21:27 | disposition home or self-care (01) ==
LOC: EC 19:48
DX: N48.89 Other specified disorders of penis (principal); J02.9 Acute pharyngitis, unspecified
CPT/HCPCS: 87081; 87430; 87529; 99283

== ENCOUNTER 2020-11-15 00:56 | Emergency (ER) | payer OTHER ==
[2020-11-15 01:05] VITALS: BP 120/69; PULSE 73; RESP 20; TEMP 98.7
[2020-11-15] MEDS ORDERED: IBUPROFEN 600 MG STARTER PACK 4 TAB BTL PO STA (01:22)
[2020-11-15] MEDS ORDERED: AMOXIC-POT CLAV 875MG STARTER PACK 2 TAB BTL PO STA (01:22)
--- NOTE | 2020-11-15 01:28 | ED ---
Animal Bite HPI - General Chief Complaint: Animal Bite Stated Complaint: Cat scratch Time Seen by Provider: 11/15/20 01:05 Source: patient, family Mode of arrival: ambulatory Limitations: no limitations - History of Present Illness Initial Comments: 25-year-old male patient presents to the emergency department today for evaluation of Bite and cat scratches to the bilateral arms and hands. Patient states that he was rescuing a cat when he picked it up it started to scratch and bite. States that this is his [id number]'s cat and there is no concern for rabies. States injury occurred approximately 40 minutes ago. Denies numbness or tingling to the hands. Denies any difficulty with range of motion. Denies taking any medication for his symptoms. He initially cleanse the wounds with cold water and poured nail syriac remover containing alcohol over the wounds. States his last tetanus vaccine was bit in the last 5 years. Patient denies any headache, neck pain, back pain, chest pain, shortness of breath, dizziness, weakness, abdominal pain, nausea, vomiting, or difficulties with bowel movements or urination. - Related Data Previous Rx's Medication Instructions Recorded Cephalexin [Keflex] 500 mg PO Q6H 7 Days #28 cap 05/07/20 Lidocaine [Lidocaine 3% Topical 1 applic TOPICAL TID #30 gram 07/10/20 Cream] Mupirocin 2% Oint [Bactroban 2% 1 applic TOPICAL TID #60 gm 07/10/20 Oint] valACYclovir HCL [Valtrex] 1,000 mg PO Q8HR #21 tab 07/10/20 Amoxic-Pot Clav 875-125Mg 1 tab PO Q12HR #14 tablet 11/15/20 [Augmentin 875-125] Allergies Allergy/AdvReac Type Severity Reaction Status Date / Time No Known Allergies Allergy Verified 11/15/20 01:04 Review of Systems ROS Statement: Those systems with pertinent positive or pertinent negative responses have been documented in the HPI. ROS Other: All systems not noted in ROS Statement are negative. Past Medical History Past Medical History: No Reported History History of Any Multi-Drug Resistant Organisms: None Reported Past Surgical History: Tonsillectomy Past Psychological History: No Psychological Hx Reported Smoking Status: Vaper Past Alcohol Use History: Occasional Past Drug Use History: Marijuana General Exam Limitations: no limitations General appearance: alert, in no apparent distress, other (This is a well- developed, well-nourished adult male patient in no acute distress. Vital signs upon presentation are temperature 98.7F, pulse 73, respirations 20, blood pressure 120/69, pulse ox 99% on room air.) Eye exam: Present: normal appearance, PERRL, EOMI. Absent: scleral icterus, conjunctival injection, periorbital swelling ENT exam: Present: normal exam, normal oropharynx, mucous membranes moist Respiratory exam: Present: normal lung sounds bilaterally. Absent: respiratory distress, wheezes, rales, rhonchi, stridor Cardiovascular Exam: Present: regular rate, normal rhythm, normal heart sounds. Absent: systolic murmur, diastolic murmur, rubs, gallop, clicks Extremities exam: Present: full ROM, normal capillary refill, other (There are multiple punctures and abrasions noted to the bilateral hands. Long superficial scratches to the bilateral forearms. No active bleeding. ). Absent: tenderness, pedal edema, joint swelling, calf tenderness Neurological exam: Present: alert, oriented X3, CN II-XII intact Psychiatric exam: Present: normal affect, normal mood Skin exam: Present: warm, dry, intact, normal color. Absent: rash Course Vital Signs 11/15/20 01:02 Temperature 98.7 F Pulse Rate 73 Respiratory 20 Rate Blood Pressure 120/69 O2 Sat by Pulse 99 Oximetry Medical Decision Making - Medical Decision Making 25 year-old male patient presents to the emergency department for evaluation of cat bite and scratches to the bilateral hands and forearms. Wounds were cleansed. Patient started on Augmentin. He is up-to-date on his tetanus vaccine. He'll be discharged with wound care and education regarding signs or symptoms of infection. He is instructed to follow-up with his primary care physician for recheck in 1-2 days. Return parameters were discussed in detail. He verbalizes understanding and agrees with this plan. Disposition Clinical Impression: Cat bite of left hand, Cat bite of right hand, Cat scratch Disposition: HOME SELF-CARE Condition: Good Instructions (If sedation given, give patient instructions): Animal Bite (ED) Additional Instructions: Keep wounds clean and dry. Complete antibiotic prescription in full. Take, Motrin for pain control. Follow-up through primary care physician for recheck in 1-2 days. Return to the emergency department for any new, worsening, or concerning symptoms Prescriptions: Amoxic-Pot Clav 875-125Mg [Augmentin 875-125] 1 tab PO Q12HR #14 tablet Is patient prescribed a controlled substance at d/c from ED?: No Referrals: None,Stated [Primary Care Provider] - 1-2 days Time of Disposition: 01:28
== END 2020-11-15 01:59 | disposition home or self-care (01) ==
LOC: EC 00:56
DX: S61.432A Puncture wound without foreign body of left hand, initial encounter (principal); S61.431A Puncture wound without foreign body of right hand, initial encounter; S50.872A Other superficial bite of left forearm, initial encounter; S50.871A Other superficial bite of right forearm, initial encounter; F17.290 Nicotine dependence, other tobacco product, uncomplicated; Z90.89 Acquired absence of other organs; W55.01XA Bitten by cat, initial encounter; W55.03XA Scratched by cat, initial encounter; Y93.89 Activity, other specified
CPT/HCPCS: 99283

== ENCOUNTER 2021-05-31 16:51 | Emergency (ER) | payer OTHER ==
[2021-05-31 16:57] VITALS: BP 112/70; PULSE 86; RESP 16; TEMP 97.6
[2021-05-31 17:34] LABS: Appearance,Urine Clear (Clear); Bilirubin,Urine Negative (Negative); Blood,Urine Negative (Negative); Color,Urine Yellow; Glucose,Urine (UA) Negative (Negative); Ketones,Urine Negative (Negative); Leukocyte Esterase,Urine Negative (Negative); Nitrite,Urine Negative (Negative); PH, Urine 6.5 (5.0-8.0); Protein,Urine Trace (Negative); Specific Gravity,Urine 1.032 (1.001-1.035)
--- NOTE | 2021-05-31 17:58 | ED ---
Male Urogenital HPI - General Chief complaint: Urogenital Stated complaint: Urogenital Time Seen by Provider: 05/31/21 16:57 Source: patient Mode of arrival: ambulatory Limitations: no limitations - History of Present Illness Initial comments: 26-year-old male presents to the emergency room with a chief complaint of dysuria. Patient states he has been experiencing similar symptoms to his partner which closed diarrhea with increased urgency but no frequency. He denies any penile discharge, testicular pain or tenderness. Denies any fevers chills or back pain. States he is possibly concern for STDs. And he would like to get tested but not treated. He denies any further complaints. - Related Data Previous Rx's Medication Instructions Recorded Cephalexin [Keflex] 500 mg PO Q6H 7 Days #28 cap 05/07/20 Lidocaine [Lidocaine 3% Topical 1 applic TOPICAL TID #30 gram 07/10/20 Cream] Mupirocin 2% Oint [Bactroban 2% 1 applic TOPICAL TID #60 gm 07/10/20 Oint] valACYclovir HCL [Valtrex] 1,000 mg PO Q8HR #21 tab 07/10/20 Amoxic-Pot Clav 875-125Mg 1 tab PO Q12HR #14 tablet 11/15/20 [Augmentin 875-125] Allergies Allergy/AdvReac Type Severity Reaction Status Date / Time No Known Allergies Allergy Verified 05/31/21 16:57 Review of Systems ROS Statement: Those systems with pertinent positive or pertinent negative responses have been documented in the HPI. ROS Other: All systems not noted in ROS Statement are negative. Past Medical History Past Medical History: No Reported History History of Any Multi-Drug Resistant Organisms: None Reported Past Surgical History: Tonsillectomy Past Psychological History: No Psychological Hx Reported Smoking Status: Vaper Past Alcohol Use History: Occasional Past Drug Use History: Marijuana General Exam Limitations: no limitations General appearance: alert, in no apparent distress Head exam: Present: atraumatic, normocephalic, normal inspection Eye exam: Present: normal appearance, PERRL, EOMI Pupils: Present: normal accommodation ENT exam: Present: normal exam, normal oropharynx, mucous membranes moist Neck exam: Present: normal inspection, full ROM. Absent: tenderness, lymphadenopathy Respiratory exam: Present: normal lung sounds bilaterally. Absent: respiratory distress Cardiovascular Exam: Present: regular rate, normal rhythm, normal heart sounds GI/Abdominal exam: Present: soft. Absent: distended, tenderness, guarding, rebound exam: Present: normal inspection, circumcision. Absent: testicular tenderness, urethral discharge, scrotal swelling, vertical testicular lie Extremities exam: Present: normal inspection, full ROM Back exam: Present: normal inspection, full ROM Neurological exam: Present: alert, oriented X3 Psychiatric exam: Present: normal affect, normal mood Skin exam: Present: warm, dry, intact, normal color Course Vital Signs 05/31/21 16:55 Temperature 97.6 F Pulse Rate 86 Respiratory 16 Rate Blood Pressure 112/70 O2 Sat by Pulse 100 Oximetry Medical Decision Making - Medical Decision Making 26-year-old male presents emergency Department with a chief complaint of dys uria. Physical examination, no lesions detected on his testicles. No discharge or testicular tenderness. UA is unremarkable. There are chlamydia Trichomonas pending. Did offer treatment, he declined. We will contact him regarding the findings. Advised to follow PCP. Advised on proper condom use. Case discussed with physician. - Lab Data Lab Results 05/31/21 Range/Units 17:20 Urine Color Yellow Urine Appearance Clear (Clear) Urine pH 6.5 (5.0-8.0) Ur Specific [place] 1.032 (1.001-1.035) Urine Protein Trace H (Negative) Urine Glucose (UA) Negative (Negative) Urine Ketones Negative (Negative) Urine Blood Negative (Negative) Urine Nitrite Negative (Negative) Urine Bilirubin Negative (Negative) Urine Urobilinogen 4.0 (<2.0) mg/dL Ur Leukocyte Esterase Negative (Negative) Disposition Clinical Impression: Dysuria Disposition: HOME SELF-CARE Condition: Stable Instructions (If sedation given, give patient instructions): Condom Use (ED), Sexually Transmitted Diseases (ED) Additional Instructions: We will contact you regarding STD testing. Follow-up with primary care physician. Return to emergency department if symptoms worsen. Is patient prescribed a controlled substance at d/c from ED?: No Referrals: None,Stated [Primary Care Provider] - 1-2 days Time of Disposition: 18:00
== END 2021-05-31 18:39 | disposition home or self-care (01) ==
LOC: EC 16:51
DX: R30.0 Dysuria (principal); F17.290 Nicotine dependence, other tobacco product, uncomplicated
CPT/HCPCS: 81003; 87491; 87591; 99283